=== PATIENT | male | born 1960 ===

== ENCOUNTER 2018-10-23 09:27 | Day surgery (SDC) | payer OTHER ==
[2018-10-05 15:43] VITALS: BMI 27.4
[~2018-10-23 09:27] MED LIST: Lidocaine 2% Jelly (Uro-Jet) ONE; Lidocaine 2% w Epi 1:100,000 Inj IJ ONE; Povidone Iodine Ophthalmic 5% Soln ONE
[2018-10-23 11:01] VITALS: PULSE 65; RESP 18; TEMP 97.9; O2SAT 97
[2018-10-23] MEDS: Tobramycin/Dexamethasone (Tobradex) Opth Sol (2.5 ml) ONE ×2 (13:36→13:44)
[2018-10-23] MEDS: Tobramycin/Dexamethasone OPHT OINT ONE ×2 (13:36→13:42)
[2018-10-23 14:11] VITALS: BP 136/79
--- NOTE | 2018-10-24 04:44 | OP ---
PROCEDURE DATE: 10/23/2018 PREOPERATIVE DIAGNOSES: 1. Pterygium, left eye. 2. Corneal opacification, left eye. POSTOPERATIVE DIAGNOSES: 1. Pterygium, left eye. 2. Corneal opacification, left eye. OPERATIVE PROCEDURE: Excision of pterygium with conjunctival autograft and lamellar keratectomy, left eye. ANESTHESIA TYPE: Local standby. COMPLICATIONS: None. PROCEDURE: The patient was brought to the operating room and was prepped and draped in the usual sterile fashion. A lid speculum was placed into the eye and topical Tetracaine was used. One percent lidocaine with epinephrine was injected subconjunctivally into the body of the pterygium. A Mike scissor was used to create a small opening at the neck of the pterygium at the limbus, and then a tunnel was created beneath the pterygium. A #4-0 silk suture was placed through this tunnel and tied securely. An additional #4-0 silk suture was placed through the tunnel and in a sling fashion, was used to excise the head of the pterygium from the corneal surface. A Mike scissor was then used to excise the scleral extension of the pterygium for approximately 3-4 millimeters. Tenon's membrane was removed beneath the dissected bed and light cautery was used for hemostasis. A #57 Gile blade was then used to perform a lamellar keratectomy removing all of the opacified corneal tissue. A tavo carmen was used to korean this surface. One percent lidocaine was used subconjunctivally in the superior aspect of the eye, and a conjunctival autograft was harvested and rotated in an anatomical fashion over the recipient bed. The graft was noted to be of excellent size for the bed, and #8-0 Vicryl sutures were used in an interrupted fashion to suture the graft in place. At the limbus both above and below, the graft was tacked down to episclera. At the end of the case a collagen shield soaked in TobraDex was placed onto the cornea, and TobraDex ointment was placed into the eye. A patch and shield were placed over the eye, and the patient was taken from the operating room in excellent condition. Heraclio Whitehead MD [facility] # [id number]
== END 2018-10-23 14:44 | disposition home or self-care (01) ==
LOC: C.SDS 09:27
PROVIDERS: ATTEND Ophthalmology
DX: H11.052 Peripheral pterygium, progressive, left eye (principal); H17.9 Unspecified corneal scar and opacity